=== PATIENT | female | born 1980 | race Caucasian/White ===

== ENCOUNTER → 2018-12-16 | Day surgery (SDC) | payer OTHER ==
[~2018-12-16] MED LIST: HYDR50CA2 PO; IV RINGERS,LACTATED 1000ML 1,000 ML IV ONE; LEVO50TA PO; LEXAPRO5 MG PO; LIDOCAINE 2% PF 5 ML VIAL. ONE; PHEN15CA2 PO; PRAS25CA PO; PROPOFOL 40 ML IV ONE
[2018-12-16 08:56] VITALS: BP 92/70
--- NOTE | 2018-12-18 08:45 | PATHOLOGY ---
[facility] Accession Number: [id number] . 01 Material submitted: . small bowel - SMALL BOWEL BX . 01 Clinical history: . Pre-OP DX: Abdominal pain, change in bowels, nausea, rectal bleed Post-OP DX: Rule out celiac . 02 Diagnosis: Small bowel biopsies: - Patchy mild nonspecific duodenitis. (JPM:vish; 12/17/2018) QMS/12/17/2018 . 02 Comment: Sections of the small bowel biopsy reveal segments of duodenal and small intestine mucosa. There are focal areas showing a mild increase of chronic inflammatory cells within the lamina propria with a few scattered admixed neutrophils. There are no sprue-like changes. (JPM:vish; 12/17/2018) . 02 Electronically signed: . En Meadows MD, Pathologist NPI- [id number] . 01 Gross description: . Received in formalin labeled "Latonia Knapp, small bowel BX," are multiple segments of perry soft tissue measuring 1.5 x 0.6 x 0.1 cm in aggregate dimensions. The specimen is filtered and entirely submitted in cassette A1. (TSD; 12/16/2018) TOB/TOB . 02 Pathologist provided ICD-10: K29.80 . 02 CPT . 528023 Specimen Comment: A courtesy copy of this report has been sent to Specimen Comment: [phone], . Specimen Comment: Report sent to and Performed at: 01 [facility] [address], [place], [place] [id number] MD Calixto Moralez MD Phone: [phone] Performed at: [facility] [address], [place] [id number] MD En Meadows MD Phone: [phone]
== END ==
LOC: ENDOS 07:09
PROVIDERS: ATTEND Internal Medicine Gastroenterology
DX: K29.80 Duodenitis without bleeding (principal); K64.0 First degree hemorrhoids; K63.89 Other specified diseases of intestine; K21.9 Gastro-esophageal reflux disease without esophagitis; D64.9 Anemia, unspecified; F41.9 Anxiety disorder, unspecified; F32.9 Major depressive disorder, single episode, unspecified; F15.90 Other stimulant use, unspecified, uncomplicated; E03.9 Hypothyroidism, unspecified; Z83.71 Family history of colonic polyps; Z88.1 Allergy status to other antibiotic agents; Z88.5 Allergy status to narcotic agent; Z88.8 Allergy status to other drugs, medicaments and biological substances; Z72.89 Other problems related to lifestyle; Z98.890 Other specified postprocedural states; Z98.51 Tubal ligation status
CPT/HCPCS: 43239; 45378; 81025; 88305; J2001; J2704